=== PATIENT | female | born 1975 | race Caucasian/White ===

== ENCOUNTER 2021-12-06 12:06 | Day surgery (SDC) | payer MEDICAID ==
[~2021-12-06] VITALS: Ht 162.6 cm; Wt 69.2 kg
[~2021-12-06 12:06] MED LIST: LIDOcaine 1% W/epiNEPHrine 1:100,000 20ml vial ONE; fentaNYL/PF 50MCG/1 ML 2ML syringe ONE; heparin sodium, porcine/PF 100unit/ml 5ML syringe ONE; midazolam 1 mg/ML 2ml injection ONE
[2021-12-06] MEDS ORDERED: normal saline 1000ml 1,000 ML IV PRN (12:35)
[2021-12-06 12:36] VITALS: BP 124/93
[2021-12-06] MEDS ORDERED: heparin sodium, porcine/PF 100unit/ml 5ML syringe ONE (14:30)
[2021-12-06] MEDS ORDERED: fentaNYL/PF 50MCG/1 ML 2ML syringe ONE (14:31)
[2021-12-06] MEDS ORDERED: LIDOcaine 1%/PF 5ML 10 MG/ML VIAL ONE ×2 (14:31→14:32)
[2021-12-06] MEDS ORDERED: midazolam 1 mg/ML 2ml injection ONE ×2 (14:31→15:14)
[2021-12-06 15:42] VITALS: BP 117/77
[2021-12-06 15:46] VITALS: BP 117/49
[2021-12-06 16:00] VITALS: BP 113/68
== END 2021-12-06 16:15 | disposition home or self-care (01) ==
LOC: SSTAY O 12:06
PROVIDERS: ATTEND Preventive Medicine Aerospace Medicine
DX: C21.0 Malignant neoplasm of anus, unspecified (principal); Z87.891 Personal history of nicotine dependence
CPT/HCPCS: 36561; 76937; 77001; 99152; 99153; C1769; C1788; C1894; J1642; J2250; J3010; J3490; J7030; A4620